=== PATIENT | female | born 1970 | race Caucasian/White ===

== ENCOUNTER 2023-02-20 13:38 | Emergency (ER) | payer SELFPAY ==
[~2023-02-20] VITALS: Ht 160 cm; Wt 73.9 kg
[2023-02-20 13:41] VITALS: BP 145/83
[2023-02-20] MEDS ORDERED: MORPHINE SULFATE 4 MG/ML SYR IM ONE (14:55)
[2023-02-20 14:56] LABS: BASOPHILS % (AUTO) 0.5 % (0.0-2.0); EOSINOPHILS # (AUTO) 0.1 K/uL (0-0.4); EOSINOPHILS % (AUTO) 1.2 % (0.0-4.0); HEMATOCRIT 42.4 % (36-48); HEMOGLOBIN 14.5 g/dL (12.0-16.0); LYMPHOCYTES # (AUTO) 1.8 K/uL (2.5-16.5); LYMPHOCYTES % (AUTO) 17.9 % (20.5-51.1); MEAN CORPUSCULAR HEMOGLOBIN 30 pg (27-31); MEAN CORPUSCULAR HGB CONC 34 g/dL (33-37); MEAN CORPUSCULAR VOLUME 88.2 fL (80-94); MONOCYTES # (AUTO) 0.6 K/uL (0.8-1.0); MONOCYTES % (AUTO) 5.5 % (1.7-9.3); NEUTROPHILS # (AUTO) 7.6 K/uL (1.8-7.7); NEUTROPHILS % (AUTO) 74.9 % (42.2-75.2); PLATELET COUNT (AUTO) 214 K/uL (140-450); RED BLOOD CELL COUNT(AUTO) 4.81 MIL/uL (4.20-5.40); RED CELL DISTRIBUTION WIDTH 13.3 % (11.6-13.7); WHITE BLOOD COUNT (AUTO) 10.2 K/uL (4.8-10.8)
--- NOTE | 2023-02-20 15:33 | NUR ---
Patient ambulated to bed 4.
--- NOTE | 2023-02-20 15:40 | NUR ---
52 y/o female bib daughter for c/o right hand pain x 1 month. Denies any trauma or injury. No visible signs of trauma noted. Per patient, she is also having difficulty in moving. Patient reports taking Ibuprofen for pain. Medical History: Denies NKDA
--- NOTE | 2023-02-20 15:50 | NUR ---
volar splint applied to R wrist
[2023-02-20] MEDS ORDERED: DICL20GE TP (16:18)
[2023-02-20] MEDS ORDERED: NAPR-1704 PO (16:18)
--- NOTE | 2023-02-20 16:50 | NUR ---
Patient discharged with v/s stable. Written and verbal after care instructions given. Patient alert, oriented and verbalized understanding of instructions. Ambulatory with steady gait. All questions addressed prior to discharge. ID band removed. Patient advised to follow up with PMD. Rx of Naproxen and Diclofenac given. Opportunity to ask questions provided and answered. WORK NOTE HANDED TO PATIENT.
== END 2023-02-20 16:50 | disposition home or self-care (01) ==
LOC: MED 13:38
DX: M67.833 Other specified disorders of tendon, right wrist (principal); Z79.899 Other long term (current) drug therapy
CPT/HCPCS: 29125; 36415; 73110; 76881; 83605; 85025; 85651; 86140; 96372; 99284; J2270